=== PATIENT | female | born 1980 | race Caucasian/White ===

== ENCOUNTER 2016-09-21 02:15 | Emergency (ER) | payer BC ==
[2016-09-21 02:26] VITALS: TEMP 98
[2016-09-21] MEDS ORDERED: SODIUM CHLORIDE 0.9% 1,000 ML IV ONE (02:39)
--- NOTE | 2016-09-21 02:44 | ED ---
Abdominal Pain HPI - General Chief Complaint: Abdominal Pain Stated Complaint: abd pain Time Seen by Provider: 09/21/16 02:29 Source: patient, RN notes reviewed Mode of arrival: ambulatory Limitations: no limitations - History of Present Illness Initial Comments: Patient is a 35-year-old female presents to the emergency room for evaluation of abdominal pain. Patient states abdominal pain began around 12:30 this morning. Patient states it woke her up from her sleep. Patient states having pain in her right upper quadrant. Patient states that she's had slight pain like this in the past but nothing as significant as it was this morning. Patient states that she had [employer] for dinner tonight. Patient denies diarrhea or constipation. Patient denies nausea or vomiting. Patient states that she is having 5 out of 10 constant throbbing pain in her right upper quadrant. Patient denies pain or burning during urination, trouble urinating or blood in urine. Patient denies history of kidney stones. Patient denies any history of abdominal surgeries besides the section. Patient denies fevers or chills. Patient denies headache or dizziness. Patient denies chest pain or shortness of breath. - Related Data Home Medications Medication Instructions Recorded Confirmed Sertraline [Zoloft] 50 mg PO DAILY 09/21/16 09/21/16 Thyroid,Pork [Ellinger Thyroid] 60 mg PO DAILY 09/21/16 09/21/16 Previous Rx's Medication Instructions Recorded Dicyclomine [Bentyl] 10 mg PO TID PRN #15 capsule 09/21/16 Allergies Allergy/AdvReac Type Severity Reaction Status Date / Time ibuprofen [From Motrin] Allergy Swelling Verified 09/21/16 02:26 Review of Systems ROS Statement: Those systems with pertinent positive or pertinent negative responses have been documented in the HPI. ROS Other: All systems not noted in ROS Statement are negative. Past Medical History Past Medical History: Mitral Valve Prolapse (MVP), Thyroid Disorder History of Any Multi-Drug Resistant Organisms: None Reported Past Surgical History: Section Additional Past Surgical History / Comment(s): Mitral Valve Prolapse, Thyroidectomy Past Psychological History: Depression Smoking Status: Never smoker Past Alcohol Use History: None Reported Past Drug Use History: None Reported General Exam - General Exam Comments Initial Comments: Laying in exam room, no acute distress. Limitations: no limitations General appearance: alert, in no apparent distress Head exam: Present: atraumatic, normocephalic, normal inspection Eye exam: Present: normal appearance ENT exam: Present: normal exam Neck exam: Present: normal inspection Respiratory exam: Present: normal lung sounds bilaterally. Absent: respiratory distress Cardiovascular Exam: Present: regular rate, normal rhythm, normal heart sounds GI/Abdominal exam: Present: soft, tenderness (Right upper quadrant), normal bowel sounds. Absent: distended, guarding, rebound, rigid Extremities exam: Present: normal inspection Back exam: Present: normal inspection Neurological exam: Present: alert, oriented X3, CN II-XII intact, normal gait Psychiatric exam: Present: normal affect, normal mood Skin exam: Present: warm, dry, intact, normal color. Absent: rash Course Vital Signs 09/21/16 02:20 Temperature 98.0 F Pulse Rate 89 Respiratory 16 Rate Blood Pressure 147/68 O2 Sat by Pulse 100 Oximetry Medical Decision Making - Medical Decision Making Patient is a 35-year-old female presents to the emergency room for evaluation of abdominal pain. Labs show no concerning findings besides slight anemia. Liver enzymes are stable. WBC stable. Patient declined any pain medications while she was here. Patient's symptoms could also be related to bowel spasms. Will send patient home with [facility]. Advised patient to follow-up with primary care provider for further evaluation if symptoms are not improving. Patient states she understands everything that was discussed with her. Return parameters discussed. Case discussed with Dr. Francisco. - Lab Data Result diagrams: 09/21/16 02:51 09/21/16 02:51 Lab Results 09/21/16 09/21/16 09/21/16 Range/Units 02:44 02:44 02:51 WBC (3.8-10.6) k/uL RBC (3.80-5.40) m/uL Hgb (11.4-16.0) gm/dL Hct (34.0-46.0) % MCV (80.0-100.0) fL MCH (25.0-35.0) pg MCHC (31.0-37.0) g/dL RDW (11.5-15.5) % Plt Count (150-450) k/uL Neutrophils % % Lymphocytes % % Monocytes % % Eosinophils % % Basophils % % Neutrophils # (1.3-7.7) k/uL Lymphocytes # (1.0-4.8) k/uL Monocytes # (0-1.0) k/uL Eosinophils # (0-0.7) k/uL Basophils # (0-0.2) k/uL Hypochromasia Microcytosis Sodium 141 (137-145) mmol/L Potassium 4.1 (3.5-5.1) mmol/L Chloride 107 (98-107) mmol/L Carbon Dioxide 26 (22-30) mmol/L Anion Gap 8 mmol/L BUN 16 (7-17) mg/dL Creatinine 0.70 (0.52-1.04) mg/dL Est GFR (MDRD) Af Amer >60 (>60 ml/min/1.73 sqM) Est GFR (MDRD) Non-Af >60 (>60 ml/min/1.73 sqM) Glucose 151 H (74-99) mg/dL Calcium 9.1 (8.4-10.2) mg/dL Total Bilirubin 0.3 (0.2-1.3) mg/dL AST 18 (14-36) U/L ALT 38 (9-52) U/L Alkaline Phosphatase 69 (38-126) U/L Total Protein 6.6 (6.3-8.2) g/dL Albumin 3.8 (3.5-5.0) g/dL Amylase 49 (30-110) U/L Lipase 101 (23-300) U/L Urine Color Yellow Urine Appearance Clear (Clear) Urine pH 6.5 (5.0-8.0) Ur Specific [place] 1.018 (1.001-1.035) Urine Protein Negative (Negative) Urine Glucose (UA) Negative (Negative) Urine Ketones Negative (Negative) Urine Blood Trace H (Negative) Urine Nitrite Negative (Negative) Urine Bilirubin Negative (Negative) Urine Urobilinogen <2.0 (<2.0) mg/dL Ur Leukocyte Esterase Negative (Negative) Urine RBC 2 (0-5) /hpf Urine WBC 1 (0-5) /hpf Ur Squamous Epith Cells 3 (0-4) /hpf Urine Bacteria Rare H (None) /hpf Urine Mucus Rare H (None) /hpf Urine HCG, Qual Not Detected (Not Detectd) 09/21/16 Range/Units 02:51 WBC 6.2 (3.8-10.6) k/uL RBC 4.68 (3.80-5.40) m/uL Hgb 10.4 L (11.4-16.0) gm/dL Hct 33.5 L (34.0-46.0) % MCV 71.6 L (80.0-100.0) fL MCH 22.2 L (25.0-35.0) pg MCHC 31.0 (31.0-37.0) g/dL RDW 15.8 H (11.5-15.5) % Plt Count 201 (150-450) k/uL Neutrophils % 74 % Lymphocytes % 17 % Monocytes % 5 % Eosinophils % 1 % Basophils % 0 % Neutrophils # 4.6 (1.3-7.7) k/uL Lymphocytes # 1.1 (1.0-4.8) k/uL Monocytes # 0.3 (0-1.0) k/uL Eosinophils # 0.1 (0-0.7) k/uL Basophils # 0.0 (0-0.2) k/uL Hypochromasia Marked Microcytosis Moderate Sodium (137-145) mmol/L Potassium (3.5-5.1) mmol/L Chloride (98-107) mmol/L Carbon Dioxide (22-30) mmol/L Anion Gap mmol/L BUN (7-17) mg/dL Creatinine (0.52-1.04) mg/dL Est GFR (MDRD) Af Amer (>60 ml/min/1.73 sqM) Est GFR (MDRD) Non-Af (>60 ml/min/1.73 sqM) Glucose (74-99) mg/dL Calcium (8.4-10.2) mg/dL Total Bilirubin (0.2-1.3) mg/dL AST (14-36) U/L ALT (9-52) U/L Alkaline Phosphatase (38-126) U/L Total Protein (6.3-8.2) g/dL Albumin (3.5-5.0) g/dL Amylase (30-110) U/L Lipase (23-300) U/L Urine Color Urine Appearance (Clear) Urine pH (5.0-8.0) Ur Specific [place] (1.001-1.035) Urine Protein (Negative) Urine Glucose (UA) (Negative) Urine Ketones (Negative) Urine Blood (Negative) Urine Nitrite (Negative) Urine Bilirubin (Negative) Urine Urobilinogen (<2.0) mg/dL Ur Leukocyte Esterase (Negative) Urine RBC (0-5) /hpf Urine WBC (0-5) /hpf Ur Squamous Epith Cells (0-4) /hpf Urine Bacteria (None) /hpf Urine Mucus (None) /hpf Urine HCG, Qual (Not Detectd) - Radiology Data Radiology results: report reviewed, image reviewed Disposition Clinical Impression: Abdominal pain Disposition: HOME SELF-CARE Condition: Good Instructions: Abdominal Pain (ED) Additional Instructions: Take Bentyl as needed for pain. Please follow up with primary care provider for further evaluation. If any new symptom arises or symptoms worsen, return to ER as soon as possible. Prescriptions: Dicyclomine [Bentyl] 10 mg PO TID PRN #15 capsule PRN Reason: Pain Referrals: Chelo Pacheco MD [STAFF PHYSICIAN] - 1-2 days Time of Disposition: 03:50
[2016-09-21 03:08] LABS: Basophils % (A) 0 %; CH 21.7; CHCM 30.4; Eosinophils # (A) 0.1 k/uL (0-0.7); Eosinophils % (A) 1 %; HCT 33.5 % (34.0-46.0); HDW 3.07; HGB 10.4 gm/dL (11.4-16.0); Hypochromasia Marked; Luc # (Auto) 0.18; Luc % (Auto) 3; Lymphocytes # (A) 1.1 k/uL (1.0-4.8); Lymphocytes % (A) 17 %; MCH 22.2 pg (25.0-35.0); MCV 71.6 fL (80.0-100.0); Microcytosis Moderate; Monocytes # (A) 0.3 k/uL (0-1.0); Monocytes % (A) 5 %; Neutrophils # (A) 4.6 k/uL (1.3-7.7); Neutrophils % (A) 74 %; RBC 4.68 m/uL (3.80-5.40); RDW 15.8 % (11.5-15.5); WBC 6.2 k/uL (3.8-10.6); WBC (Perox) 6.02
[2016-09-21 03:12] LABS: Appearance,Urine Clear (Clear); Bacteria,Urine Rare /hpf; Bilirubin,Urine Negative (Negative); Glucose,Urine (UA) Negative (Negative); Ketones,Urine Negative (Negative); Leukocyte Esterase,Urine Negative (Negative); Mucus,Urine Rare /hpf; Nitrite,Urine Negative (Negative); PH, Urine 6.5 (5.0-8.0); Particle Count 4669; Protein,Urine Negative (Negative); RBC,Urine 2 /hpf (0-5); Specific Gravity,Urine 1.018 (1.001-1.035); Squamous Epithelial Cell,Urine 3 /hpf (0-4); UA Billing (MACRO vs. MICRO) MICRO; Urobilinogen,Urine <2.0 mg/dL (<2.0); WBC,Urine 1 /hpf (0-5)
[2016-09-21 03:28] LABS: ALT 38 U/L (9-52); AST 18 U/L (14-36); Alkaline Phosphatase 69 U/L (38-126); Amylase 49 U/L (30-110); Anion Gap 8 mmol/L; Blood Urea Nitrogen 16 mg/dL (7-17); Calcium 9.1 mg/dL (8.4-10.2); Carbon Dioxide 26 mmol/L (22-30); Chloride 107 mmol/L (98-107); Glucose 151 mg/dL (74-99); Non-African American GFR(MDRD) >60 (>60 ml/min/1.73 sqM); Potassium 4.1 mmol/L (3.5-5.1); Sodium 141 mmol/L (137-145); Total Bilirubin 0.3 mg/dL (0.2-1.3); Total Protein 6.6 g/dL (6.3-8.2)
--- NOTE | 2016-09-21 04:09 | XR ---
EXAM: XR Abdomen Complete, 2 or More Views. CLINICAL HISTORY: Pain TECHNIQUE: Frontal view of the abdomen/pelvis with upright view of the abdomen. COMPARISON: No relevant prior studies available. FINDINGS: Intraperitoneal space: No free air. Gastrointestinal tract: Unremarkable. No dilation. Bones/joints: Unremarkable. IMPRESSION: Normal abdominal x-rays.
[2016-09-21 04:10] VITALS: BP 112/56; PULSE 80; RESP 18
== END 2016-09-21 04:04 | disposition home or self-care (01) ==
LOC: EC 02:15
DX: R10.11 Right upper quadrant pain (principal); D64.9 Anemia, unspecified; E07.9 Disorder of thyroid, unspecified; F32.9 Major depressive disorder, single episode, unspecified; Z79.899 Other long term (current) drug therapy; Z88.6 Allergy status to analgesic agent
CPT/HCPCS: 36415; 74000; 80053; 81001; 81025; 82150; 83690; 85025; 96360; 99284

== ENCOUNTER → 2017-02-01 | Outpatient (CLI) | payer BC | LOC: RADECHMAIN 12:59 | PROVIDERS: ATTEND Family Medicine | DX: R42 Dizziness and giddiness (principal) | CPT/HCPCS: 93270; 93271 ==

== ENCOUNTER → 2018-04-01 | Outpatient (CLI) | payer BC ==
--- NOTE | 2018-04-01 09:11 | XR ---
EXAMINATION TYPE: XR lumbar spine 2 or 3V DATE OF EXAM: 04/01/2018 COMPARISON: NONE HISTORY: 37-year-old female with disorder of central nervous system, low back and leg pain TECHNIQUE: 3 views FINDINGS: 5 lumbar type vertebral bodies. Mild endplate spondylosis is seen at multiple levels. Disc interspace s are relatively maintained. Mild facet arthropathy lower lumbar spine. Vertebral body heights are pr eserved and alignment is maintained. IMPRESSION: 1. Very mild endplate spondylosis throughout. Mild facet arthropathy lower lumbar spine. 2. No vertebral compression collapse or malalignment.
== END ==
LOC: RADXRMAIN 08:39
PROVIDERS: ATTEND Family Medicine
DX: M47.816 Spondylosis without myelopathy or radiculopathy, lumbar region (principal); M46.96 Unspecified inflammatory spondylopathy, lumbar region
CPT/HCPCS: 72100

== ENCOUNTER → 2018-10-17 | Outpatient (CLI) | payer BC ==
--- NOTE | 2018-10-18 07:26 | US ---
EXAMINATION TYPE: US pelvic complete DATE OF EXAM: 10/17/2018 COMPARISON: US dated 12/04/2012 CLINICAL HISTORY: N92.1 MENORRHAGIA. Pt states very heavy, frequent periods TECHNIQUE: Transabdominal (TA). Transabdominal sonographic images of the pelvis were acquired. Date of LMP: 10/10/2018 EXAM MEASUREMENTS: Uterus: 10.3 x 5.3 x 6.0 cm Endometrial Stripe: 0.6 cm Right Ovary: 2.4 x 2.8 x 2.0 cm Left Ovary: 2.1 x 2.2 x 2.6 cm 1. Uterus: Anteverted Heterogeneous 2. Endometrium: wnl 3. Right Ovary: wnl, follicles 4. Left Ovary: wnl, follicles 5. Bilateral Adnexa: wnl 6. Posterior cul-de-sac: wnl IMPRESSION: No significant abnormality identified on transabdominal pelvic ultrasound.
== END | disposition home or self-care (01) ==
LOC: RADUSWWP 16:07
PROVIDERS: ATTEND Obstetrics & Gynecology
DX: N92.1 Excessive and frequent menstruation with irregular cycle (principal)
CPT/HCPCS: 76856

== ENCOUNTER → 2021-02-23 | Outpatient (CLI) | payer BC ==
--- NOTE | 2021-02-24 13:56 | MM ---
Reason for exam: screening (asymptomatic). Baseline mammogram. Physical Findings: Nurse did not find any significant physical abnormalities on exam. MG 3D Screening Mammo W/Cad Bilateral CC and MLO view(s) were taken. There are scattered fibroglandular densities. There is no discrete abnormality. ASSESSMENT: Benign, BI-RAD 2 RECOMMENDATION: Routine screening mammogram of both breasts in 1 year.
== END | disposition home or self-care (01) ==
LOC: RADMAMWWP 09:31
PROVIDERS: ATTEND Family Medicine
DX: Z12.31 Encounter for screening mammogram for malignant neoplasm of breast (principal)
CPT/HCPCS: 77063; 77067

== ENCOUNTER → 2022-11-01 | Outpatient (CLI) | payer BC ==
--- NOTE | 2022-11-02 09:49 | MM ---
Reason for Exam: Screening (asymptomatic). Last mammogram was performed 1 year(s) and 8 month(s) ago. Patient History: Menarche at age 12. First Full-Term at age 22. Patient has history of breast feeding. Patient used Hormonal Contraceptives for 1 year. Last menstrual period: 10/11/2022 Risk Values: Krys 5 year model risk: 0.6%. NCI Lifetime model risk: 8.9%. Prior Study Comparison: 02/23/2021 Bilateral Screening Mammogram, [facility]. Tissue Density: There are scattered fibroglandular densities. Findings: Analyzed By CAD. Chronic low density nodularity medial left breast anterior depth. There is no suspicious group of microcalcifications or new suspicious mass in either breast. Overall Assessment: Benign, BI-RAD 2 Management: Screening Mammogram of both breasts in 1 year. . Patient should continue monthly self-breast exams. A clinical breast exam by your physician is recommended on an annual basis. This exam should not preclude additional follow-up of suspicious palpable abnormalities. Note on Krys scores and lifetime risk: 1. A Krys score greater than 3% is considered moderate risk. If this is the case, consider specialist referral to assess eligibility for a risk reducing agent. 2. If overall lifetime risk for the development of breast cancer is 20% or higher, the patient may qualify for future screening with alternating mammogram and breast MRI. Electronically signed and approved by: Denny Hein M.D. Radiologist
== END | disposition home or self-care (01) ==
LOC: RADMAMWWP 07:20
PROVIDERS: ATTEND Family Medicine
DX: Z12.31 Encounter for screening mammogram for malignant neoplasm of breast (principal)
CPT/HCPCS: 77063; 77067

== ENCOUNTER → 2023-02-01 | Outpatient (CLI) | payer BC ==
--- NOTE | 2023-02-01 11:38 | P.SLEEP ---
History of Present Illness DATE: 02/01/2023 CONSULTATION/NEW PATIENT EVALUATION HISTORY OF PRESENT ILLNESS/SLEEP-WAKE EVALUATION: 42-year-old lady had been ev aluated in the sleep center for possible obstructive sleep apnea hypopnea syndrome. SLEEP SCHEDULE: Usually sleep schedule from 9 PM to 5:50 AM on weekdays and from midnight until 2 PM on weekend. FALLING ASLEEP: No problems with falling asleep. DURING SLEEP: Patient has loud snoring, witnessed episodes of stop breathing during the sleep. Patient wakes up from sleep up to 4 times with up to 3 episodes of nocturia and episodes of gasping for air. No history of hypnogogical hallucinations, sleep paralysis, or cataplexy. DURING THE DAY/WAKE STATE: In the morning patient wake up tired, has d ifficulties to pay attention, has problems with memory, concentration, irritability, depression and anxiety. [place] sleepiness scale is in very high range of 19. Patient takes up to 5 naps during the day. PAST MEDICAL HISTORY: Depression, anxiety, hypothyroidism, hyperlipidemia, history of anemia. PAST SURGICAL HISTORY: Adenoidectomy, thyroidectomy, . MEDICATIONS: Prozac 20 mg 3 tablets a day, armour thyroid 120 g once a day. SOCIAL HISTORY: Negative for smoking quit using alcohol. FAMILY HISTORY: Hypertension, sleep apnea, diabetes. REVIEW OF SYSTEMS: Loud snoring, multiple awakenings from sleep, significant excessive daytime sleepiness. No fevers. No double vision. No recent chest pain. No shortness of breath. No abdominal pain. No bleeding episodes. No blood in urine. No seizure episodes. PHYSICAL EXAMINATION: GENERAL: A pleasant patient without any distress. VITAL SIGNS: BP 124/74, HR 72, RR 12, weight 239.2 pounds, height 5 foot 0 inches, body mass index 46.6. HEENT: PERRLA, EOMI. Evaluation of oropharynx showed tongue protrudes midline, low position of soft palate Mallampati 2, wide pillars, short distance between soft palate and pharyngeal wall. NECK: Supple. No JVD. Thyroid is not palpable. 15.5 inches in circumference. LUNGS: Clear to percussion and to auscultation. Good air exchange. No wheezing or rhonchi. HEART: S1, S2 regular. No murmurs, gallops or rubs. ABDOMEN: Soft and nontender. Bowel sounds are present. No organomegaly appreciated. Slightly obese EXTREMITIES: No clubbing or cyanosis. INCIDENT COORDINATOR: Awake, alert, and oriented x3. Cranial nerves 2 to 7 intact. There is no fasciculation or atrophy noted. No focal deficits observed. ASSESSMENT: 1. Loud snoring, witnessed episodes of stop breathing during the sleep, multiple awakenings with gasping for air and nocturia, small oropharyngeal airspace, sleepiness. Obstructive sleep apnea hypopnea syndrome. 2. Extremely high [place] Sleepiness Scale of 19 with history of taking naps up to 5 times a day dictated necessity to include narcolepsy and hypersomnia in differential diagnosis, possibly as additional diagnosis. 3. Obesity BMI 46.6. 4. Depression. 5 and anxiety. 6 . Status post thyroidectomy. 7. Hyperlipidemia. 8. History of anemia. 9 . Status post adenoidectomy 10. Status post C-sections 2. PLAN: 1. Home sleep apnea test for evaluation of patient's breathing during sleep. 2. CPAP/BiPAP titration if sleep study confirms obstructive sleep apnea- hypopnea syndrome. 3. Preferable position during sleep on the side. 4. No driving if patient feels any sleepiness. Patient is aware of civil and criminal liability for unsafe driving. 5. Sleep hygiene with regular sleep time for at least 7.5-8 hours. 6. Watching and losing weight. 7. Patient will need multiple sleep latency test if sleep study is negative for obstructive sleep apnea hypopnea syndrome or if patient will continue to feel significant sleepiness while on treatment with CPAP. Thank you very much for referring this patient for consultation. Sincerely, Dick Horowitz MD, PhD, FAASM. Diplomat of [employer], Sleep Medicine Board by [employer] Preprint Analyst of [facility] [place] Past Medical History Past Medical History: Mitral Valve Prolapse (MVP), Thyroid Disorder History of Any Multi-Drug Resistant Organisms: None Reported Past Surgical History: Section Additional Past Surgical History / Comment(s): Thyroidectomy Past Anesthesia/Blood Transfusion Reactions: No Reported Reaction Smoking Status: Never smoker Medications and Allergies Home Medications Medication Instructions Recorded Confirmed Type Thyroid,Pork [Riley Thyroid] 120 mg PO HS 09/21/16 07/12/22 History ARIPiprazole [Abilify] 5 mg PO HS 07/11/22 07/12/22 History FLUoxetine HCL [PROzac] 60 mg PO HS 07/11/22 07/12/22 History Rosuvastatin Calcium 5 mg PO HS 07/11/22 07/12/22 History Allergies Allergy/AdvReac Type Severity Reaction Status Date / Time ibuprofen [From Motrin] Allergy Swelling Verified 07/12/22 06:57 Sleep Note - Sleep Note Sleep Note: Temperature: Pulse Rate: Respiratory Rate: Blood Pressure: SpO2: Height: Weight: BMI: Neck Circumference:
== END ==
LOC: 3 N SLEEP 10:45
PROVIDERS: ATTEND Internal Medicine
DX: G47.33 Obstructive sleep apnea (adult) (pediatric) (principal); E66.9 Obesity, unspecified; G47.419 Narcolepsy without cataplexy; F32.A Depression, unspecified; F41.9 Anxiety disorder, unspecified; E03.9 Hypothyroidism, unspecified; E78.5 Hyperlipidemia, unspecified; D64.9 Anemia, unspecified; Z98.890 Other specified postprocedural states; Z68.42 Body mass index [BMI] 45.0-49.9, adult; Z79.890 Hormone replacement therapy; Z88.8 Allergy status to other drugs, medicaments and biological substances
CPT/HCPCS: 99211

== ENCOUNTER → 2023-02-22 | Outpatient (CLI) | payer BC | LOC: 3 N SLEEP 16:52 | PROVIDERS: ATTEND Internal Medicine | DX: G47.33 Obstructive sleep apnea (adult) (pediatric) (principal); Z88.6 Allergy status to analgesic agent ==

== ENCOUNTER → 2023-07-04 | Outpatient (CLI) | payer BC ==
--- NOTE | 2023-07-04 13:57 | P.PN ---
Subjective DATE: 07/04/2023 FOLLOW UP VISIT. Patient with obstructive sleep apnea hypopnea syndrome return to sleep center for follow-up visit. Recently patient had sleep study which documented obstructive sleep apnea hypopnea syndrome. Patient was initiated on PAP therapy and today is first visit after treatment was started. Patient was able to use PAP equipment every night for the whole night. The patient does not have significant problems with the mask, PAP pressure and humidification. [place] sleepiness scale is 4, which showed significant improvements comparing with the first visit before treatment for obstructive sleep apnea. [place] Sleepiness Scale was 19. I checked information from PAP unit. PAP unit pressure 5-15, average 10.5 cm H2O. Usage is 90% and 87 % for more then 4 hours, average 7 hours per night. Leak is 3.8 l/m, which is in acceptable range. Apnea Hypopnea Index is 0.4, which is normal. MEDICATIONS:1. Prozac 20 mg 3 tablets a day 2. [place] thyroid 120 g once a day During physical exam: GENERAL: A pleasant patient without any distress. VITAL SIGNS: BP 129/81, HR 93, RR 20 , weight 252.8, temperature 98.1, oxygen saturation at room air 96% . HEENT: PERRLA, EOMI.low position of soft palate, Mallapati 2 . NECK: Supple. No JVD. LUNGS: Clear to percussion and to auscultation. Good air exchange. No wheezing or rhonchi. HEART: S1, S2 regular. ABDOMEN: Soft and nontender. Slightly obese EXTREMITIES: No clubbing or cyanosis. MUCKER OPERATOR: Awake, alert, and oriented x3. No focal deficit. Impressions: 1. Obstructive sleep apnea-hypopnea syndrome. Patient demonstrated great compliance with treatment, benefiting from treatment. No significant daytime sleepiness after patient was started on treatment with CPAP. 2. Obesity. 3. History of depression. 4. History of anxiety. 5. Status post thyroidectomy. 6. Hyperlipidemia. 7. History of anemia. 8. Status post adenoidectomy. 9. Status post 2. Plan: 1. Continue using PAP equipment every night for the whole night. 2. To change air filter at least 1-2 times per month. 3. PAP unit should stay lower then position of the head. 4. Advised patient to remove all remaining water from humidifier canister daily and make it dry after each usage. Refill canister with fresh distilled water before each usage. 5. Sleep hygiene with regular time in bed for at least 8 hours. 6. Precautions related to driving. No driving if feel any sleepiness. 7. I will maintain prescription for PAP supplies including mask, tube, filters. 8. Follow up visit in 6 months or earlier if patient has any problems. 9. Watching and losing weight. Thank you very much for allowing me to participate in the management of your patient. Dick Horowitz MD, PhD, FAASM. Diplomat of [place], Sleep Medicine Board by [employer] Wiring Inspector of [facility] [place]
== END ==
LOC: 3 N SLEEP 13:03
PROVIDERS: ATTEND Internal Medicine
DX: G47.33 Obstructive sleep apnea (adult) (pediatric) (principal); F32.A Depression, unspecified; F41.9 Anxiety disorder, unspecified; Z98.890 Other specified postprocedural states; Z90.49 Acquired absence of other specified parts of digestive tract; Z99.89 Dependence on other enabling machines and devices; Z88.6 Allergy status to analgesic agent
CPT/HCPCS: 99212

== ENCOUNTER → 2023-07-27 | Outpatient (CLI) | payer BC ==
--- NOTE | 2023-07-27 20:08 | US ---
EXAMINATION TYPE: US pelvic complete DATE OF EXAM: 07/27/2023 COMPARISON: US CLINICAL INDICATION: Female, 42 years old with history of N92.6 IRREGULAR MENSTRUATION, UNSPECIFIED; Pt states LMP June 13, however has been having vaginal bleeding and spotting ever since TECHNIQUE: Transabdominal (TA). Transabdominal sonographic images of the pelvis were acquired. Date of LMP: Jun 13 EXAM MEASUREMENTS: Uterus: 11.9 x 5.7 x 6.4 cm Endometrial Stripe: 1.7 cm Right Ovary: 3.1 x 2.5 x 2.0 cm Left Ovary: 3.8 x 3.9 x 3.4 cm 1. Uterus: Anteverted Heterogeneous 2. Endometrium: Thickened for pt's symptoms 3. Right Ovary: wnl, follicles 4. Left Ovary: Simple cyst= 2.9 x 2.8 x 3.1 cm 5. Bilateral Adnexa: wnl 6. Posterior cul-de-sac: wnl IMPRESSION: Endometrium is mildly thickened correlate for endometrial hyperplasia.
== END | disposition home or self-care (01) ==
LOC: RADUSWWP 15:46
PROVIDERS: ATTEND Family Medicine
DX: N92.6 Irregular menstruation, unspecified (principal)
CPT/HCPCS: 76856

== ENCOUNTER → 2024-01-30 | Outpatient (CLI) | payer BC ==
[2024-01-30 13:27] VITALS: BP 120/78; PULSE 84; RESP 18; TEMP 98.3
--- NOTE | 2024-01-30 13:42 | P.PROGSL ---
Subjective DATE: 01/30/2024 FOLLOW UP VISIT. Patient with obstructive sleep apnea hypopnea syndrome return to sleep center for follow-up visit. Information from previous visit have been reviewed. Patient is using PAP equipment every night for the whole night, getting PAP supplies in time. The patient does not have significant problems with the mask, PAP unit and humidification. [place] sleepiness scale is 10, which is borderline. I checked information from PAP unit. PAP unit pressure 5-15, average 11.7 cm H2O. Usage is 80% of nights, average 4.5 hours per night. Leak is 6.6 l/m, which is in acceptable range. Apnea Hypopnea Index is 0.4, which is perfect. MEDICATIONS have been reviewed, please see below. During physical exam: GENERAL: A pleasant patient without any distress. VITAL SIGNS: Please see below, weight is 276.4 lbs. HEENT: PERRLA, EOMI.low position of soft palate, Mallapati 2 . NECK: Supple. No JVD. LUNGS: Clear to percussion and to auscultation. Good air exchange. No wheezing or rhonchi. HEART: S1, S2 regular. ABDOMEN: Soft and nontender. Obese EXTREMITIES: No clubbing or cyanosis. HYDRAULIC DESIGN ENGINEER: Awake, alert, and oriented x3. No focal deficit. Impressions: 1. Obstructive sleep apnea-hypopnea syndrome. Patient demonstrated good compliance with treatment, benefiting from treatment. 2. Obesity, patient increased weight on 24 pounds, BMI 53.0. 3. History of depression. 4. History of anxiety. 5. Status post thyroidectomy. 6. Hyperlipidemia. 7. History of anemia. 8. Status post x 2. 9. Status post appendectomy. Plan: 1. Continue using PAP equipment every night for the whole night. 2. Sleep hygiene with regular time in bed for at least 7.5-8 hours 3. PAP unit should stay lower then position of the head. 4. Advised patient to remove all remaining water from humidifier canister daily and make it dry after each usage. Refill canister with fresh distilled water before each usage. 5. Watching and losing weight. 6. Precautions related to driving. No driving if feel any sleepiness. 7. I will maintain prescription for PAP supplies including mask, tube, filters. 8. Follow up visit in 6 months or earlier if patient has any problems. Thank you very much for allowing me to participate in the management of your patient. Dick Horowitz MD, PhD, FAASM. Diplomat of [place] [employer], Sleep Medicine Board by [place] [employer] Hazmat Truck Driver of [facility] [place] Objective - Vital Signs Vital Signs: Vital Signs Temp 98.3 F 01/30/24 13:24 Pulse 84 01/30/24 13:24 Resp 18 01/30/24 13:24 BP 120/78 01/30/24 13:24 Pulse Ox 96 01/30/24 13:24 FiO2 Intake & Output 01/29/24 01/30/24 01/30/24 18:59 06:59 18:59 Weight 276.4 kg Home Medications: Home Medications Medication Instructions Recorded Confirmed Type Thyroid,Pork [Omer Thyroid] 120 mg PO HS 09/21/16 07/12/22 History ARIPiprazole [Abilify] 5 mg PO HS 07/11/22 07/12/22 History FLUoxetine HCL [PROzac] 60 mg PO HS 07/11/22 07/12/22 History Rosuvastatin Calcium 5 mg PO HS 07/11/22 07/12/22 History
== END ==
LOC: 3 N SLEEP 13:10
PROVIDERS: ATTEND Internal Medicine
CPT/HCPCS: 99212

== ENCOUNTER → 2024-02-13 | Outpatient (CLI) | payer BC ==
--- NOTE | 2024-02-14 10:20 | MM ---
Reason for Exam: Screening (asymptomatic). Last mammogram was performed 1 year(s) and 4 month(s) ago. Patient History: Menarche at age 12. First Full-Term at age 22. Patient has history of breast feeding. Patient used Hormonal Contraceptives for 1 year. Last menstrual period: 02/04/2024 Risk Values: Krys 5 year model risk: 0.6%. NCI Lifetime model risk: 8.8%. Prior Study Comparison: 02/23/2021 Bilateral Screening Mammogram, [facility]. 11/01/2022 Bilateral MG 3D screening mammo w/cad, [facility]. Tissue Density: There are scattered areas of fibroglandular density. Findings: Analyzed By CAD. There is no suspicious group of microcalcifications or new suspicious mass in either breast. Overall Assessment: Benign, BI-RAD 2 Management: Screening Mammogram of both breasts in 1 year. . Patient should continue monthly self-breast exams. A clinical breast exam by your physician is recommended on an annual basis. This exam should not preclude additional follow-up of suspicious palpable abnormalities. Note on Krys scores and lifetime risk: 1. A Krys score greater than 3% is considered moderate risk. If this is the case, consider specialist referral to assess eligibility for a risk reducing agent. 2. If overall lifetime risk for the development of breast cancer is 20% or higher, the patient may qualify for future screening with alternating mammogram and breast MRI. Electronically signed and approved by: Detnon Bass M.D. Radiologis
== END | disposition home or self-care (01) ==
LOC: RADMAMWWP 15:46
PROVIDERS: ATTEND Family Medicine
DX: Z12.31 Encounter for screening mammogram for malignant neoplasm of breast
CPT/HCPCS: 77063; 77067

== ENCOUNTER → 2024-09-24 | Outpatient (CLI) | payer BC ==
[2024-09-24 10:56] VITALS: BP 108/73; PULSE 76; RESP 16; TEMP 98.3
--- NOTE | 2024-09-24 12:26 | P.PROGSL ---
Subjective DATE: 09/24/2024 FOLLOW UP VISIT. Patient with obstructive sleep apnea hypopnea syndrome return to sleep center for follow-up visit. Information from previous visit have been reviewed. Patient is using PAP equipment every night for the whole night, getting PAP supplies in time. The patient does not have significant problems with the mask, PAP unit and humidification. Lisle sleepiness scale is 7, which is normal. I checked information from PAP unit. PAP unit pressure 5, average 11.3 cm H2O. Usage is 70% for more then 4 hours, average 4 hours per night. Leak is 6 l/m, which is in acceptable range. Apnea Hypopnea Index is 0.3, which is perfect. MEDICATIONS have been reviewed, please see below. During physical exam: GENERAL: A pleasant patient without any distress. VITAL SIGNS: Please see below, weight is 263 lbs. HEENT: PERRLA, EOMI, position of soft palate Mallapati 2 . NECK: Supple. No JVD. LUNGS: Clear to percussion and to auscultation. Good air exchange. No wheezing or rhonchi. HEART: S1, S2 regular. ABDOMEN: Soft and nontender.[] EXTREMITIES: No clubbing or cyanosis. [employer]: Awake, alert, and oriented x3. No focal deficit. Impressions: 1. Obstructive sleep apnea-hypopnea syndrome. Patient demonstrated great compliance with treatment, benefiting from treatment. 2. Obesity, BMI 50.8, patient lost 13 pounds comparing with previous visit. 3. History of depression. 4. History of anxiety. 5. Status post thyroidectomy. 6. Hyperlipidemia. 7. History of anemia. 8. Status post x 2. 9. Status post appendectomy. Plan: 1. Continue using PAP equipment every night for the whole night. 2. Sleep hygiene with regular time in bed for at least 7.5-8 hours 3. PAP unit should stay lower then position of the head. 4. Advised patient to remove all remaining water from humidifier canister daily and make it dry after each usage. Refill canister with fresh distilled water before each usage. 5. Watching and losing weight. 6. Precautions related to driving. No driving if feel any sleepiness. 7. I will maintain prescription for PAP supplies including mask, tube, filters. 8. Follow up visit in 8 months or earlier if patient has any problems. Thank you very much for allowing me to participate in the management of your patient. Dick Horowitz MD, PhD, FAASM. Diplomat of [place] [employer], Sleep Medicine Board by [place] [employer] [facility] [place] Objective - Vital Signs Vital Signs: Vital Signs Temp 98.3 F 09/24/24 10:56 Pulse 76 09/24/24 10:56 Resp 16 09/24/24 10:56 BP 108/73 09/24/24 10:56 Pulse Ox 98 09/24/24 10:56 FiO2 Intake & Output 09/23/24 09/24/24 09/24/24 18:59 06:59 18:59 Weight 119.295 kg Home Medications: Home Medications Medication Instructions Recorded Confirmed Type Thyroid,Pork [[place] Thyroid] 120 mg PO HS 09/21/16 09/24/24 History ARIPiprazole [Abilify] 5 mg PO HS 07/11/22 07/12/22 History FLUoxetine HCL [PROzac] 60 mg PO HS 07/11/22 09/24/24 History Rosuvastatin Calcium 5 mg PO HS 07/11/22 07/12/22 History
== END ==
LOC: 3 N SLEEP 10:43
PROVIDERS: ATTEND Internal Medicine
DX: G47.33 Obstructive sleep apnea (adult) (pediatric) (principal); E66.9 Obesity, unspecified; E78.5 Hyperlipidemia, unspecified; F41.9 Anxiety disorder, unspecified; F32.A Depression, unspecified; Z68.43 Body mass index [BMI] 50.0-59.9, adult; Z90.89 Acquired absence of other organs; Z98.890 Other specified postprocedural states; Z88.6 Allergy status to analgesic agent; Z86.2 Personal history of diseases of the blood and blood-forming organs and certain disorders involving the immune mechanism; Z99.89 Dependence on other enabling machines and devices
CPT/HCPCS: 99212